=== PATIENT | male | born 1990 | race Caucasian/White ===

== ENCOUNTER 2016-12-15 23:24 | Emergency (ER) | payer OTHER ==
[~2016-12-15] VITALS: Ht 195.5 cm; Wt 136.1 kg
[~2016-12-15 23:24] MED LIST: FLEXERIL10 MG PO; MEDROL DOSEPAK4 MG PO; MOTRIN800 MG PO
[2016-12-15] MEDS ORDERED: NAPROSYN500 MG PO (23:48)
== END 2016-12-16 00:33 | disposition home or self-care (01) ==
LOC: ED 23:24
DX: M79.671 Pain in right foot (principal); M79.672 Pain in left foot; R03.0 Elevated blood-pressure reading, without diagnosis of hypertension

== ENCOUNTER 2017-01-20 17:58 | Emergency (ER) | payer OTHER ==
[~2017-01-20] VITALS: Ht 193 cm; Wt 136.1 kg
[~2017-01-20 17:58] MED LIST changes: +NAPROSYN500 MG PO
[2017-01-20] MEDS ORDERED: CYCLOBENZAPRINE5 M3 PO (21:17)
[2017-01-20] MEDS ORDERED: Motrin,Rufen800 MG PO (21:17)
== END 2017-01-20 21:18 | disposition home or self-care (01) ==
LOC: ED 17:58
DX: M54.12 Radiculopathy, cervical region (principal); R07.9 Chest pain, unspecified; M79.602 Pain in left arm

== ENCOUNTER 2017-03-30 15:58 | Emergency (ER) | payer OTHER ==
[~2017-03-30] VITALS: Wt 163.3 kg
[~2017-03-30 15:58] MED LIST changes: +CYCLOBENZAPRINE5 M3 PO; +Motrin,Rufen800 MG PO
== END 2017-03-30 18:12 | disposition home or self-care (01) ==
LOC: ED 15:58
DX: R20.9 Unspecified disturbances of skin sensation (principal)

== ENCOUNTER 2017-04-07 22:35 | Emergency (ER) | payer OTHER ==
[~2017-04-07] VITALS: Ht 193 cm; Wt 136.1 kg
[2017-04-08] MEDS ORDERED: BROMFED DM COU118 M2 PO (00:12)
== END 2017-04-08 01:34 | disposition home or self-care (01) ==
LOC: ED 22:35
DX: J06.9 Acute upper respiratory infection, unspecified (principal)

== ENCOUNTER 2018-09-01 22:00 | Emergency (ER) | payer OTHER ==
[~2018-09-01] VITALS: Ht 193 cm; Wt 150.6 kg
[~2018-09-01 22:00] MED LIST changes: +BROMFED DM COU118 M2 PO
[2018-09-02] MEDS ORDERED: AUGMENTIN 875-875 MG PO (00:48)
== END 2018-09-02 01:21 | disposition home or self-care (01) ==
LOC: ED 22:00
DX: J02.9 Acute pharyngitis, unspecified (principal); R10.13 Epigastric pain; R11.0 Nausea

== ENCOUNTER 2019-04-01 23:01 | Emergency (ER) | payer OTHER ==
[~2019-04-01] VITALS: Ht 195.5 cm; Wt 136.1 kg
[~2019-04-01 23:01] MED LIST changes: +AUGMENTIN 875-875 MG PO
[2019-04-01] MEDS ORDERED: KEFLEX500 M1 PO (23:31)
== END 2019-04-02 00:02 | disposition home or self-care (01) ==
LOC: ED 23:01
DX: S80.861A Insect bite (nonvenomous), right lower leg, initial encounter (principal); Z79.899 Other long term (current) drug therapy; W57.XXXA Bitten or stung by nonvenomous insect and other nonvenomous arthropods, initial encounter; Y93.89 Activity, other specified; Y92.89 Other specified places as the place of occurrence of the external cause; Y99.8 Other external cause status

== ENCOUNTER 2019-12-07 10:06 | Emergency (ER) | payer OTHER ==
[~2019-12-07 10:06] MED LIST changes: +KEFLEX500 M1 PO
[2019-12-07] MEDS ORDERED: CLINDAMYCIN HC300 MG PO (10:37)
== END 2019-12-07 10:47 | disposition home or self-care (01) ==
LOC: ED 10:06
DX: K04.7 Periapical abscess without sinus (principal); Z79.899 Other long term (current) drug therapy